=== PATIENT | female | born 1930 | race Caucasian/White ===

== ENCOUNTER 2017-10-18 21:30 | Inpatient (IN) ==
[2017-10-18] MEDS ORDERED: *HR* FentaNYL (PF) 100 MCG/2 ML VIAL IVP ONE (21:37)
[2017-10-18] MEDS ORDERED: 0.9 % Sodium Chloride 250 ML IVC ONE (21:37)
--- NOTE | 2017-10-18 21:41 | Emergency Department Note ---
Disposition Clinical Impression: Intertrochanteric fracture of right hip Qualifiers: Encounter type: initial encounter Fracture type: closed Fracture alignment: nondisplaced Qualified Code(s): S72.144A - Nondisplaced intertrochanteric fracture of right femur, initial encounter for closed fracture Disposition: Admitted As Inpatient Referrals: Gera Diamond MD [Primary Care Provider] - Time of Disposition: 23:10 General Adult HPI - General Stated complaint: fall Time Seen by Provider: 10/18/17 21:36 Source: patient, EMS Mode of arrival: EMS Limitations: other (Patient has some baseline dementia) Nursing Notes Reviewed: Yes Vital Signs Reviewed: Yes - History of Present Illness HPI Narrative: 87-year-old female brought in by EMS from local [facility] facility patient was using her walker she lost her balance and fell injuring her right hip leading to shortening and external rotation of the right lower extremity. Patient has extreme kyphosis of the back and neck. Other was no loss of consciousness the patient is not on blood thinners per EMS there is no head or neck pain. Patient denies shortness breath or chest pain weakness or numbness she has mild discomfort in her right hip. Patient brought in for further evaluation - Related Data Allergies Allergy/AdvReac Type Severity Reaction Status Date / Time Penicillins Allergy Anaphylaxis Verified 06/06/16 11:27 All systems ED: reviewed and negative except as stated. Musculoskeletal: Reports: arthralgia, myalgia Past Medical History - Past Medical History Attestation: Yes The following information was validated with the patient. Source: patient, old records reviewed, nursing notes reviewed Medical history: Reports: dementia, hypertension, peripheral artery disease Psychiatric history: Reports: anxiety, depression - Social History Smoking Status: Unknown if ever smoked Smokeless Tobacco Status: No Alcohol use: Reports: none Drug use: Reports: none Physical Exam - General Limitations: no limitations General appearance: alert, in no apparent distress - Head Head exam: atraumatic, normocephalic - Eye Eye exam: Present: normal appearance, PERRL, EOMI - ENT ENT exam: normal exam, mucous membranes dry - Neck Neck exam: Present: other (Severe cervical kyphosis) - Chest Chest inspection: Present: normal inspection, symmetric chest wall rise - Respiratory Respiratory exam: Present: normal lung sounds bilaterally - Cardiovascular Cardiovascular exam: Present: regular rate, normal rhythm - Abdominal Exam Abdominal exam: Present: soft, Non-Tender - Extremities Exam Extremities exam: Present: other (Right lower extremity external rotation and shortening. However is neurovascularly intact) - Expanded Lower Extremity Exam Hip/Pelvis exam: Present: normal inspection Knee exam: Present: normal inspection Gait: not tested/not observed - Back Exam Back exam: Present: other (Severe lordosis and kyphosis) - Neurological Exam Neurological exam: Present: alert, oriented X3 - Psychiatric Psychiatric exam: Present: normal affect - Skin Skin exam: Present: warm, dry, intact Course - Reevaluation(s) Reevaluation #1: Patient is awake and alert patient is getting 25 g of IV fentanyl little fluid bolus and she appears dehydrated screening labs and x-rays the pelvis and right hip. Clinical presumption at this point is intratrochanteric right hip fracture. Admission disposition anticipated, disposition pending. . Time: 21:42 Reevaluation #2: ED workup is complete. Troponin other chemistry values were within normal limits for baseline. Patient had a hip and pelvis x-ray reviewed by radiology as a right intertrochanteric hip fracture and an age-indeterminate right inferior and superior pubic rami fracture. I consulted the orthopedist parts professional Dr. Wilson who agreed to see the patient tomorrow and asked the patient be admitted by the hospitalist. Discussed the case with the hospitalist Dr. Hart, who accepted the patient for admission Time: 23:08 Vital Signs Temperature 98.3 F 10/18/17 21:38 Pulse Rate 74 10/18/17 21:38 Respiratory Rate 15 10/18/17 21:38 Blood Pressure 122/71 10/18/17 21:38 O2 Sat by Pulse Oximetry 96 10/18/17 21:38 Temperature 98.3 F 10/18/17 21:38 Pulse Rate 74 10/18/17 21:38 Respiratory Rate 15 10/18/17 21:38 Blood Pressure 122/71 10/18/17 21:38 O2 Sat by Pulse Oximetry 96 10/18/17 21:38 Oxygen Delivery Oxygen Delivery Room Air Medical Decision Making - Medical Records Medical records reviewed: Yes I reviewed the patient's medical records. - Lab Data Lab results reviewed: Yes I reviewed the patient's lab results. Result diagrams: 10/18/17 21:57 10/18/17 21:57 Lab Results 10/18/17 10/18/17 10/18/17 Range/Units 21:57 21:57 21:57 WBC 6.9 (4.3-11.1) K/mcL RBC 4.23 (3.82-4.97) M/mcL Hgb 14.0 (11.5-15.4) g/dL Hct 42.3 (35.3-44.9) % MCV 100.0 (83.0-100.0) fL MCH 33.1 (28.0-33.3) pg MCHC 33.1 (31.6-35.5) g/dL RDW 13.0 (11.5-14.5) % Plt Count 140 (140-400) K/mcL MPV 11.8 (9.4-12.4) fL Immature Gran % 0.4 (0-4) % Seg Neutrophils % 70.4 % Lymphocytes % 19.1 % Monocytes % 8.8 % Eosinophils % 0.9 % Basophils % 0.4 % Neutrophils # 4.9 (1.6-8.9) K/mcL Lymphocytes # 1.3 (0.6-4.6) K/mcL Monocytes # 0.6 (0.0-1.3) K/mcL Eosinophils # 0.1 (0.0-0.6) K/mcL Basophils # 0.0 (0.0-0.2) K/mcL PT 13.0 H (9.4-12.1) Seconds INR 1.2 Sodium 139 (136-145) mEq/L Potassium 4.7 (3.5-5.1) mEq/L Chloride 103 (98-107) mEq/L Carbon Dioxide 26 (23-29) mEq/L BUN 26 H (8-23) mg/dL Creatinine 0.92 (0.60-1.20) mg/dL Est GFR ( Amer) > 60 (> 60) Est GFR (Non-Af Amer) 57 L (> 60) BUN/Creatinine Ratio 28 H (6-26) Glucose 101 (70-105) mg/dL Calculated Osmolality 293 (280-300) Calcium 9.9 (8.6-10.3) mg/dL Troponin I < 0.03 (< 0.04) ng/mL - Radiology Data Radiology results reviewed: Yes I reviewed the patient's radiology results. - EKG Data EKG #1 EKG attestation: Yes I reviewed and interpreted this EKG. EKG results narrative: Twelve-lead EKG interpreted without neurologic assistance shows sinus rhythm at 83 bpm. Normal MO QRS and QT corrected. Possible right ventricular conduction delay nonspecific ST-T changes were noted changes when compared to prior EKG.
[2017-10-18 22:21] LABS: Basophils % 0.4 %; Eosinophils # 0.1 K/mcL (0.0-0.6); Eosinophils % 0.9 %; Hematocrit 42.3 % (35.3-44.9); Immature Granulocytes % 0.4 % (0-4); Lymphocytes # 1.3 K/mcL (0.6-4.6); Lymphocytes % 19.1 %; Mean Corpuscular HGB Conc 33.1 g/dL (31.6-35.5); Mean Corpuscular Hemoglobin 33.1 pg (28.0-33.3); Mean Platelet Volume 11.8 fL (9.4-12.4); Monocytes # 0.6 K/mcL (0.0-1.3); Monocytes % 8.8 %; Neutrophils # 4.9 K/mcL (1.6-8.9); Platelet Count 140 K/mcL (140-400); Red Blood Count 4.23 M/mcL (3.82-4.97); Segmented Neutrophils % 70.4 %
[2017-10-18 22:29] LABS: INR 1.2
[2017-10-18 22:34] LABS: BUN/Creatinine Ratio 28 (6-26); Blood Urea Nitrogen 26 mg/dL (8-23); Calcium 9.9 mg/dL (8.6-10.3); Carbon Dioxide 26 mEq/L (23-29); Chloride 103 mEq/L (98-107); Glucose 101 mg/dL (70-105); Osmolality,Calculated 293 (280-300); Potassium 4.7 mEq/L (3.5-5.1); Sodium 139 mEq/L (136-145); eGFR For African Americans > 60 (> 60); eGFR For Non-African Americans 57 (> 60)
[2017-10-18 22:35] LABS: Troponin I < 0.03 ng/mL (< 0.04)
[2017-10-19] MEDS ORDERED: Acetaminophen 325 MG TABLET PO PRN (04:44)
[2017-10-19] MEDS ORDERED: Naloxone 0.4 MG/ML INJ IVP PRN (04:44)
[2017-10-19] MEDS: 0.9 % Sodium Chloride 1,000 ML IVC SCH ×2 (05:26→15:10)
--- NOTE | 2017-10-19 06:05 | Internal Med History&Physical ---
Date of Encounter: 10/19/17 Time of Encounter: 04:25 Internal Medicine - H&P: HPI Chief complaint: hip fracture Admitted From: Emergency Dept Plans for Post Hospital Care: Home History of present illness: Ms. Castillo is a 87 year old female who presented to the ER tonight via EMS from her [facility]. She reportedly fell at her [facility]CF while using her walker and sustained a right lower leg injury/fracture. Imaging was performed in the ER which confirmed proximal right femoral intertrochanteric fracture as well as pubic ramus fracture. She was subsequently admitted to the hospitalist service with orthopedic consultation. Upon my assessment of the patient, patient is confused, disoriented, and is unable to provide any history whatsoever. I have very limited records available to me from [facility]. Her records confirm she has Alzheimer's dementia, hypertension, and peripheral artery disease. There are no other records available to review. I do find her CODE STATUS is DNR CC according to her [facility] records and state form. I reviewed her EKG and note that she has some high voltage and some lateral wall ST depression with T wave inversion concerning for some ischemia. She did have an initial troponin which is negative. I am unable to elicit if she has any chest pain or dyspnea at the present time. Past Med Surg Social Fam HX - Past Medical History Source: old records reviewed (very limited), other (phone conversation with ER staff) Medical history: dementia, hypertension, peripheral artery disease Psychiatric history: anxiety, depression - Past Surgical History Surgical History: other (unknown; unable to elicit) - Social History Smoking Status: Unknown if ever smoked Smokeless Tobacco Status: No Alcohol use: unknown Drug use: unknown Current living situation: [facility] Activity Level: Uses cane/walker - Family History Mother History Unknown: Yes Father History Unknown: Yes Internal Medicine - H&P: Meds Aspirin [Lo-Dose Aspirin EC] 81 mg PO 10/19/17 [History] Brimonidine Tartrate [Alphagan P] 5 ml OP 10/19/17 [History] Calcium Carbonate/Vitamin D3 [Oyster Shell Calcium-Vit D Tab] 1 each PO [History] Docusate Sodium [Stool Softener] 100 mg PO 10/19/17 [History] Donepezil HCl [Aricept] 10 mg PO 10/19/17 [History] Gabapentin [Neurontin] 100 mg PO 10/19/17 [History] Gluc Simpson Dipo Ch/Markus Simpson/C/Aleks [Glucosamine-Chondroitin Capsul] 1 each PO [History] Hydrocortisone Rectal CRM [Proctosol-HC] 28.35 gm RC 10/19/17 [History] Latanoprost [Xalatan] 2.5 ml OP 10/19/17 [History] Memantine HCl [Namenda Xr] 28 mg PO 10/19/17 [History] Menthol [Biofreeze] 118 ml TP 10/19/17 [History] OxyCODONE/APAP 5/325 [Percocet 5/325 MG] 1 each PO ONCE 10/19/17 [History] OxyCODONE/APAP 5/325 [Percocet 5/325 MG] 1 each PO Q6HR PRN 10/19/17 [History] Polyethylene Glycol 3350 [Purelax] 17 gm PO 10/19/17 [History] Polyvinyl Alcohol [Artificial Tears] 15 ml OP 10/19/17 [History] Primidone [Mysoline] 250 mg PO HS 10/19/17 [History] Sertraline [Zoloft] 25 mg PO DAILY 10/19/17 [History] Timolol Maleate 0.5% [Timolol Maleate 0.5%] 1 drop OP 10/19/17 [History] clonazePAM [Clonazepam] 0.5 mg PO 10/19/17 [History] 3 Allergy/AdvReac Type Severity Reaction Status Date / Time Penicillins Allergy Anaphylaxis Verified 06/06/16 11:27 ROS unobtainable: due to mental status - Constitutional Vitals: Temp Pulse Resp BP Pulse Ox 98.6 F 86 16 142/87 97 10/19/17 04:51 10/19/17 04:51 10/19/17 04:51 10/19/17 04:51 10/19/17 04:51 General appearance: Present: cachectic, A&O X 0, disheveled, no acute distress. Absent: answers questions appropriately Exam: looks dry - Head Head exam: Present: atraumatic, normal inspection - Eye Eye exam: Present: PERRL. Absent: scleral icterus - ENT ENT exam: Present: mucous membranes dry, normal exam - Neck Neck exam general surgery: Present: full ROM, supple. Absent: tenderness, nuchal rigidity, thyromegaly - Respiratory Respiratory exam: Present: CTAB. Absent: chest wall tenderness, rales, respiratory distress, rhonchi, wheezes - Cardiovascular Cardiovascular exam: Present: RRR, +S1, +S2, systolic murmur (grade 1-2). Absent: diastolic murmur - GI/Abdominal GI/Abdominal exam: Present: normal bowel sounds, soft. Absent: hepatomegaly, mass, splenomegaly, tenderness - Extremities Exam Extremities exam: Present: normal capillary refill, tenderness (right hip held in abduction), warm, radial pulses palpable and symmetrical. Absent: pedal edema - Neurological Exam Neurological exam: Present: alert, altered. Absent: oriented X3, facial droop Additional comments: confused and disoriented - Skin Skin exam: Present: dry, warm. Absent: rash Internal Med - H&P Results - Labs CBC & Chem 7: 10/18/17 21:57 10/18/17 21:57 - EKG Data -: EKG Interpreted by Myself - EKG Data Prior EKG available for review: no EKG comments: 10/19/17 06:19 NSR; high voltage; lateral wall ST-T inversion and subtle depression - Diagnostic Studies Other Images Status: image reviewed by me (Hip xray -- fracture noted) - Assessment and plan (1) Intertrochanteric fracture of right hip Current Visit: Yes Status: Acute Assessment and plan: 1. Will consult orthopedics. 2. I recommend delaying surgery until ECHO is done and troponins are trended. Her EKG is a little concerning for ischemia. 3. Amy-operative cardiac risk would be high at this time given the EKG finding. Unfortunately, I am unable to obtain any history from patient at this time. 4. CODE Status is DNR-CC. Qualifiers: Encounter type: initial encounter Fracture type: closed Fracture alignment: nondisplaced Qualified Code(s): S72.144A - Nondisplaced intertrochanteric fracture of right femur, initial encounter for closed fracture (2) Abnormal EKG Current Visit: Yes Status: Acute Assessment and plan: 1. Will trend EKG and troponins. 2. Will order ECHO to assess LV function and for any wall motion abnormality. 3. Recommend postponing surgery at least until above assessments completed. (3) Dementia Current Visit: Yes Status: Chronic Assessment and plan: 1. I am unsure of her baseline state. 2. Recommend contacting family if available to come to hospital to help assess baseline mental state. 3. Continue home meds as appropriate. Qualifiers: Dementia type: Alzheimer's disease Alzheimer's disease onset: unspecified onset Dementia behavioral disturbance: without behavioral disturbance Qualified Code(s): G30.9 - Alzheimer's disease, unspecified; F02.80 - Dementia in other diseases classified elsewhere without behavioral disturbance (4) DVT prophylaxis Current Visit: Yes Status: Acute Assessment and plan: 1. Heparin SQ.
[2017-10-19] MEDS: *HR* Heparin 5,000 UNIT/ML VIAL SQ SCH ×2 (06:12→16:48)
[2017-10-19 06:25] LABS: Basophils % 0.5 %; Eosinophils % 0.2 %; Hematocrit 37.4 % (35.3-44.9); Immature Granulocytes % 0.3 % (0-4); Lymphocytes % 16.1 %; Mean Corpuscular HGB Conc 32.4 g/dL (31.6-35.5); Mean Corpuscular Hemoglobin 32.1 pg (28.0-33.3); Mean Corpuscular Volume 99.2 fL (83.0-100.0); Mean Platelet Volume 11.6 fL (9.4-12.4); Monocytes # 0.6 K/mcL (0.0-1.3); Monocytes % 10.1 %; Neutrophils # 4.6 K/mcL (1.6-8.9); Platelet Count 125 K/mcL (140-400); Red Blood Count 3.77 M/mcL (3.82-4.97); Red Cell Distribution Width 13.1 % (11.5-14.5); Segmented Neutrophils % 72.8 %
[2017-10-19 06:27] LABS: Hemoglobin 12.1 g/dL (11.5-15.4)
[2017-10-19 06:36] LABS: INR 1.2; Prothrombin Time 12.6 Seconds (9.4-12.1)
[2017-10-19 06:39] LABS: Activated Partial Thrombo Time 34.6 Seconds (26.0-36.0)
[2017-10-19 06:46] LABS: Alanine Aminotransferase 19 Units/L (7-52); Albumin/Globulin Ratio 1.7 (1.1-2.2); Alkaline Phosphatase 71 Units/L (34-104); Aspartate Amino Transferase 28 Units/L (13-39); BUN/Creatinine Ratio 35 (6-26); Bilirubin,Total 0.6 mg/dL (0.3-1.0); Blood Urea Nitrogen 24 mg/dL (8-23); Calcium 9.5 mg/dL (8.6-10.3); Carbon Dioxide 25 mEq/L (23-29); Chloride 106 mEq/L (98-107); Globulin 2.3 g/dL (2.4-3.5); Glucose 108 mg/dL (70-105); Magnesium 1.9 mg/dL (1.6-2.6); Osmolality,Calculated 299 (280-300); Potassium 4.3 mEq/L (3.5-5.1); Sodium 142 mEq/L (136-145); Total Protein 6.3 g/dL (6.4-8.9); eGFR For African Americans > 60 (> 60); eGFR For Non-African Americans > 60 (> 60)
--- NOTE | 2017-10-19 06:47 | Orthopedic Consult Note ---
Date of Encounter: 10/19/17 Time of Encounter: 06:46 History of Present Illness HPI: Ms. 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 Patient admitted for treatment. Patient alert and oriented Right lower extremity Decreased range of motion secondary to pain Neurovascular intact X-rays reviewed right hip intratrochanteric fracture with hardware distal. Recommendation right hip open reduction intramedullary nail fixation. Past Med Surg Social Fam HX - Past Medical History Medical history: dementia, hypertension, peripheral artery disease Psychiatric history: anxiety, depression - Past Surgical History Surgical History: other (unknown; unable to elicit) - Social History Smoking Status: Unknown if ever smoked Smokeless Tobacco Status: No Alcohol use: unknown Drug use: unknown - Family History Mother History Unknown: Yes Father History Unknown: Yes Medications and Allergies Aspirin [Lo-Dose Aspirin EC] 81 mg PO 10/19/17 [History] Brimonidine Tartrate [Alphagan P] 5 ml OP 10/19/17 [History] Calcium Carbonate/Vitamin D3 [Oyster Shell Calcium-Vit D Tab] 1 each PO [History] Docusate Sodium [Stool Softener] 100 mg PO 10/19/17 [History] Donepezil HCl [Aricept] 10 mg PO 10/19/17 [History] Gabapentin [Neurontin] 100 mg PO 10/19/17 [History] Gluc Simpson Dipo Ch/Markus Simpson/C/Aleks [Glucosamine-Chondroitin Capsul] 1 each PO [History] Hydrocortisone Rectal CRM [Proctosol-HC] 28.35 gm RC 10/19/17 [History] Latanoprost [Xalatan] 2.5 ml OP 10/19/17 [History] Memantine HCl [Namenda Xr] 28 mg PO 10/19/17 [History] Menthol [Biofreeze] 118 ml TP 10/19/17 [History] OxyCODONE/APAP 5/325 [Percocet 5/325 MG] 1 each PO ONCE 10/19/17 [History] OxyCODONE/APAP 5/325 [Percocet 5/325 MG] 1 each PO Q6HR PRN 10/19/17 [History] Polyethylene Glycol 3350 [Purelax] 17 gm PO 10/19/17 [History] Polyvinyl Alcohol [Artificial Tears] 15 ml OP 10/19/17 [History] Primidone [Mysoline] 250 mg PO HS 10/19/17 [History] Sertraline [Zoloft] 25 mg PO DAILY 10/19/17 [History] Timolol Maleate 0.5% [Timolol Maleate 0.5%] 1 drop OP 10/19/17 [History] clonazePAM [Clonazepam] 0.5 mg PO 10/19/17 [History] 3 Allergy/AdvReac Type Severity Reaction Status Date / Time Penicillins Allergy Anaphylaxis Verified 06/06/16 11:27 All Systems Reviewed: The remainder of the systems were reviewed and are negative Physical Exam - Constitutional Vitals: Temp Pulse Resp BP Pulse Ox 98.6 F 86 16 142/87 97 10/19/17 04:51 10/19/17 04:51 10/19/17 04:51 10/19/17 04:51 10/19/17 04:51 Results - Labs Result Diagrams: 10/19/17 05:55 10/19/17 05:55 Labs: Abnormal lab results RBC 3.77 M/mcL (3.82-4.97) L 10/19/17 05:55 Plt Count 125 K/mcL (140-400) L 10/19/17 05:55 PT 12.6 Seconds (9.4-12.1) H 10/19/17 05:55 BUN 24 mg/dL (8-23) H 10/19/17 05:55 BUN/Creatinine Ratio 35 (6-26) H 10/19/17 05:55 Glucose 108 mg/dL (70-105) H 10/19/17 05:55 Serum Total Protein 6.3 g/dL (6.4-8.9) L 10/19/17 05:55 Globulin 2.3 g/dL (2.4-3.5) L 10/19/17 05:55 H & H 10/19/17 Range/Units 05:55 Hgb 12.1 D (11.5-15.4) g/dL Hct 37.4 (35.3-44.9) % All other labs normal. Consult Discharge Plan - Plan Referrals: Gera Diamond MD [Primary Care Provider] -
[2017-10-19 07:23] LABS: Troponin I 0.05 ng/mL (< 0.04)
[2017-10-19] MEDS: traMADol 50 MG TABLET PO PRN ×2 (09:41→16:48)
--- NOTE | 2017-10-19 09:52 | Anesthesia Evaluation PreOp ---
Date of Encounter: 10/19/17 Time of Encounter: 09:50 - Past History Planned Operation: RIGHT HIP PINNING Cardiac History: HTN, Other (Troponin 0.03 to 0.05) Pulmonary History: Denies Any Significant HX EXTRACTIONS TECHNOLOGIST History: Other (Dementia, tremors) Other Medical History: GERD (Occasional), Other ([facility]F resident) Anesthesia History: No Prior Anesthetic Complications, Past Anesthesia Alcohol Use: unknown Drug use: unknown Medications and Allergies Aspirin [Lo-Dose Aspirin EC] 81 mg PO 10/19/17 [History] Brimonidine Tartrate [Alphagan P] 5 ml OP 10/19/17 [History] Calcium Carbonate/Vitamin D3 [Oyster Shell Calcium-Vit D Tab] 1 each PO [History] Docusate Sodium [Stool Softener] 100 mg PO 10/19/17 [History] Donepezil HCl [Aricept] 10 mg PO 10/19/17 [History] Gabapentin [Neurontin] 100 mg PO 10/19/17 [History] Gluc Simpson Dipo Ch/Markus Simpson/C/Aleks [Glucosamine-Chondroitin Capsul] 1 each PO [History] Hydrocortisone Rectal CRM [Proctosol-HC] 28.35 gm RC 10/19/17 [History] Latanoprost [Xalatan] 2.5 ml OP 10/19/17 [History] Memantine HCl [Namenda Xr] 28 mg PO 10/19/17 [History] Menthol [Biofreeze] 118 ml TP 10/19/17 [History] OxyCODONE/APAP 5/325 [Percocet 5/325 MG] 1 each PO ONCE 10/19/17 [History] OxyCODONE/APAP 5/325 [Percocet 5/325 MG] 1 each PO Q6HR PRN 10/19/17 [History] Polyethylene Glycol 3350 [Purelax] 17 gm PO 10/19/17 [History] Polyvinyl Alcohol [Artificial Tears] 15 ml OP 10/19/17 [History] Primidone [Mysoline] 250 mg PO HS 10/19/17 [History] Sertraline [Zoloft] 25 mg PO DAILY 10/19/17 [History] Timolol Maleate 0.5% [Timolol Maleate 0.5%] 1 drop OP 10/19/17 [History] clonazePAM [Clonazepam] 0.5 mg PO 10/19/17 [History] 3 Allergy/AdvReac Type Severity Reaction Status Date / Time Penicillins Allergy Anaphylaxis Verified 06/06/16 11:27 - Meds/Allergy Pre-op Review Medications Reviewed: Yes Allergies Reviewed: Yes Beta Blockers on Current Med List: No Anesthesia Results - Labs 10/19/17 05:55 10/19/17 05:55 Laboratory Tests 10/19/17 05:55 Calcium 9.5 Magnesium 1.9 Serum Total Protein 6.3 L Albumin 4.0 - Imaging EKG: report reviewed Anesthesia Exam O2 Sat Height 1.52 m Weight 49.2 kg Weight 45.359 kg O2 Sat by Pulse Oximetry 96 O2 Sat by Pulse Oximetry 97 O2 Sat by Pulse Oximetry 98 O2 Sat by Pulse Oximetry 98 O2 Sat by Pulse Oximetry 96 Vital Signs/O2 Sat, Most Current Temp Pulse Resp BP Pulse Ox 98.1 F 92 20 135/73 96 10/19/17 07:29 10/19/17 07:29 10/19/17 07:29 10/19/17 07:29 10/19/17 07:29 - HEENT Mallampati: II Teeth: Normal, Missing Oral Opening: Greater than 3 - EXTRACTIONS TECHNOLOGIST LOC: Confused - Cardiac Rhythm: Regular - Pulmonary Breath Sounds: bilateral Clear Anesthesia Assess/Plan ASA Score: 3 Anesthetic Plan: Regional (SAB with sedation) Monitoring Plan: Standard Monitors Recovery Plan: PACU Anes Supervising Prov Stmt: Chart reviewed, and patient examined. Patient's history, risks, benefits, and alternatives discussed with the patient's son, who is also POA, and his . They wish to proceed. DNR status during surgery discussed.
[2017-10-19] MEDS: *HR* OxyCODONE Immed Rel 5 MG TABLET PO PRN ×2 (11:10→19:34)
--- NOTE | 2017-10-19 14:30 | Event Note ---
Date of Encounter: 10/19/17 Time of Encounter: 11:40 Patient complaining of right hip pain. Denies any shortness of breath or chest pain at this time. Orthopedics has evaluated patient. Plan for surgery tomorrow. Will get 2-D echocardiogram in the meantime. At patient's age, she is at moderate to high risk for cardiac complications from surgery and anesthesia.
[2017-10-19] MEDS ORDERED: 0.9 % Sodium Chloride 1,000 ML IVC SCH (15:30)
[2017-10-20] MEDS: *HR* OxyCODONE Immed Rel 5 MG TABLET PO PRN ×3 (05:36→21:45)
[2017-10-20] MEDS: *HR* Heparin 5,000 UNIT/ML VIAL SQ SCH ×2 (06:33→16:51)
[2017-10-20] MEDS ORDERED: *HR* FentaNYL (PF) 100 MCG/2 ML VIAL ONE (07:14)
[2017-10-20] MEDS ORDERED: *HR* Etomidate 40 MG/20 ML VIAL IVP ONE (07:14)
[2017-10-20] MEDS ORDERED: Lidocaine -MPF 2% 2 ML VIAL ONE (07:15)
[2017-10-20] MEDS ORDERED: Ondansetron 4 MG/2 ML VIAL ONE (07:15)
[2017-10-20] MEDS ORDERED: Dexamethasone 4 MG/ML VIAL ONE (07:15)
[2017-10-20] MEDS ORDERED: Acetaminophen IV 1,000 MG/100 ML INFUS..BTL ONE (07:26)
[2017-10-20] MEDS ORDERED: *HR* Propofol 200 MG/20 ML VIAL IVP ONE (07:44)
[2017-10-20] MEDS ORDERED: Clindamycin 900 MG/50 ML 900 MG/50 ML IV.SOLN IVPB ONE ×2 (07:45→08:21)
--- NOTE | 2017-10-20 08:25 | Anesthesia Procedures ---
Date of Encounter: 10/20/17 Time of Encounter: 07:55 Procedures: Anesthesia - Epidural/Spinal Patient ID/Chart reviewed: Yes Patient examined: Yes Supplemental Oxygen Rate (L/min): 3 Site Prep: Aseptic Technique, Sterile prep and drape, Povidone-Iodine 1% Patient position: left lateral decubitus Local Anesthetic: Lidocaine 1% Amount of Local Anesthetic used: 3 Interspace Used: L2-L3 Blood: No CSF: Yes Paresthesia: No Spinal Needle Gauge: 22 Spinal Dose: bupivicaine 0.5% 2 ml used Procedure: 0755 patient placed side lying, monitors on iv sedation 15 mg etomidate given in incremental doses, patient prepped with betadine and a sterile drape applied , 1% lidocaine used at skin, attempt x2 l2/l3 interspace used. 22 g spinal needle advanced, csf encountered, clear, no blood, no paraesthesia, 2 ml bupivicaine 0.5% preservative free used, injected at 0815. patient tolerated procedure well. Vitals + FHT's: see anesthesia record for vitals
[2017-10-20] MEDS ORDERED: *HR* PHENYLEPHRINE 1,000 MCG/10 ML SYRINGE IVP ONE (08:34)
--- NOTE | 2017-10-20 09:00 | Orthopedic Operative Note ---
Date of procedure: 10/20/17 Pre-op diagnosis: Right intertrochanteric hip fracture Post-op diagnosis: same Procedure: Procedure: Right hip open reduction intramedullary nail fixation Estimated blood loss: 50 cc Hardware: Metal: 10 x 130 Synthes TFN, 90 mm helical blade, 36 mm distal locking bolt \ Operative procedure: The patient was brought to the operating room and placed on the operating room table. After general anesthesia was administered the well leg was place in the well leg johnson and the operative leg was placed in the fracture leg johnson. All pressure points were padded appropriately. The operative extremity was prepped and draped in the sterile surgical fashion patient received IV antibiotic prior to skin incision. A standard direct lateral approach was made over the entry point of the greater trochanter, the incision was made through the skin and subcutaneous tissue hemostasis was obtained with Bovie cautery. Using careful sharp dissection the fascia was identified and incised, flouroscopic assistance was used to identify the entry point. The guidepin was placed at the entry point using fluroscopic assistance, it was over reamed with the proximal reamer. The 10 x 130 nail was placed through the entry hole, across the fracture site into the distal fragment the position was confirmed with fluroscopy. A guide pin was placed through the proximal locking guide from the lateral femur through the nail across the fracture site into the femoral head, it was over reamed with the reamer. The 90 mm helical blade was placed over the guide pin through the nail into the femoral head, locked in place with the proximal locking bolt. Distal locking bolt was placed through the distal locking guide position of hardware and fracture reduction found to be acceptable with fluroscopic assistance. The wound was irrigated. Fascia was closed with a running #2 PDS suture. The deep tissue was irrigated and closed deep with #1 PDS suture superficially with 0 PDS suture and skin was closed with skin cordelia. The patient was placed in a sterile dressing The patient was extubated and transferred to the recovery room in stable condition. Anesthesia: spinal Surgeon: Joshua Wilson Was there an psychiatric assistant present: No Estimated blood loss (cc): 50 Condition: stable Disposition: PACU
[2017-10-20 09:33] LABS: Hematocrit 34.9 % (35.3-44.9); Hemoglobin 11.3 g/dL (11.5-15.4)
--- NOTE | 2017-10-20 09:46 | Anesthesia Evaluation Post Op ---
Date of Encounter: 10/20/17 Time of Encounter: 09:45 Notes: Patient's vital signs have been reviewed. Patient is stable postoperatively and has adequately recovered from anesthesia. Patient is determined to have stable airway patency and respiratory function including respiratory rate and oxygen saturation. Patient has a stable heart rate, blood pressure and adequate hydration. Patients mental status is acceptable. Patients temperature is appropriate. Pain and nausea are adequately controlled. - Discharge PostOp Status: Transfer Patient to floor
[2017-10-20] MEDS: Ringers Solution, Lactated 1,000 ML ONE (10:00)
[2017-10-20] MEDS ORDERED: clonazePAM 0.5 MG TABLET PO PRN ×2 (14:42→15:13)
[2017-10-20] MEDS ORDERED: Hydrocortisone Rectal 2.5% CRM 28 GM TUBE RC PRN ×2 (14:42→15:13)
--- NOTE | 2017-10-20 14:49 | Internal Med Progress Note ---
Date of Encounter: 10/20/17 Time of Encounter: 14:45 - Assessment and plan (1) Intertrochanteric fracture of right hip Current Visit: Yes Status: Acute Assessment and plan: Status post open reduction and internal fixation with intramedullary nail. Postop day 0. Continue supportive care. Pain control. Plan for PT/OT. Qualifiers: Encounter type: initial encounter Fracture type: closed Fracture alignment: nondisplaced Qualified Code(s): S72.144A - Nondisplaced intertrochanteric fracture of right femur, initial encounter for closed fracture (2) Abnormal EKG Current Visit: Yes Status: Acute Assessment and plan: Echocardiogram done shows EF of 65% with indeterminate diastolic function and moderate pulmonary hypertension. No further workup needed at this time (3) Dementia Current Visit: Yes Status: Chronic Assessment and plan: Continue Aricept. High risk for delirium. Qualifiers: Dementia type: Alzheimer's disease Alzheimer's disease onset: unspecified onset Dementia behavioral disturbance: without behavioral disturbance Qualified Code(s): G30.9 - Alzheimer's disease, unspecified; F02.80 - Dementia in other diseases classified elsewhere without behavioral disturbance (4) DVT prophylaxis Current Visit: Yes Status: Acute Assessment and plan: Continue subcutaneous heparin - Time Spent With Patient Total time spent is greater than 50% in coordination of care (as documented) at patient's floor/unit and/or counseling patient: - Subjective Interval history: Patient underwent surgery this morning. Is recovering in her bed. She is somnolent but easily awakes. - Constitutional Vitals: Temp Pulse Resp BP Pulse Ox 98.9 F 88 16 120/71 97 10/20/17 11:53 10/20/17 11:53 10/20/17 11:53 10/20/17 11:53 10/20/17 11:53 General appearance: Present: cachectic, A&O X 0, disheveled, no acute distress. Absent: answers questions appropriately Exam: Denies any pain at this time - Respiratory Respiratory exam: Present: CTAB. Absent: accessory muscle use, rales, rhonchi, wheezes - Cardiovascular Cardiovascular exam: Present: RRR, +S1, +S2, systolic murmur. Absent: diastolic murmur, gallop, rubs - GI/Abdominal GI/Abdominal exam: Present: normal bowel sounds, soft, no peritoneal signs. Absent: distended, tenderness - Extremities Exam Extremities exam: Present: warm, radial pulses palpable and symmetrical. Absent : calf tenderness, cyanotic, pedal edema - Neurological Exam Neurological exam: Present: alert, oriented X3, no focal deficits. Absent: facial droop, speech deficit Internal Medicine: Result - Labs CBC & Chem 7: 10/20/17 09:25 10/19/17 05:55 Labs: Short CBC 10/20/17 Range/Units 09:25 Hgb 11.3 L (11.5-15.4) g/dL Hct 34.9 L (35.3-44.9) % Cardiac Enzymes 10/19/17 Range/Units 18:25 Troponin I < 0.03 (< 0.04) ng/mL - ABG Interpretation ABG results: PT/INR, D-dimer PT 12.6 Seconds (9.4-12.1) H 10/19/17 05:55 - Impressions Impressions Fluoroscopy 10/20/17 00:00 IMPRESSION: Intraprocedural fluoroscopic spot images as above. See separate procedure report for more information. D/ / Paco Montalvo MD / Paco Montalvo MD Interpreting Provider: Paco Montalvo MD Hip X-Ray 10/20/17 00:00 IMPRESSION: Intraprocedural fluoroscopic spot images as above. See separate procedure report for more information. D/ / Paco Montalvo MD / Paco Montalvo MD Interpreting Provider: Paco Montalvo MD Hip X-Ray 10/20/17 07:43 IMPRESSION: 1. Status post uncomplicated open reduction internal fixation. D/ / Mickey Shannon MD / Mickey Shannon MD Interpreting Provider: Mickey Shannon MD - VTE Documentation of Mechanical Device: Venous foot pump, device Consult Discharge Plan - Plan Referrals: Gera Diamnod MD [Primary Care Provider] -
[2017-10-20] MEDS ORDERED: Artificial Tears SOLN 15 ML BOTTLE OP SCH (15:00)
[2017-10-20] MEDS ORDERED: Clindamycin 900 MG/50 ML 900 MG/50 ML IV.SOLN IVPB SCH (15:13)
[2017-10-20] MEDS ORDERED: Naloxone 0.4 MG/ML INJ IVP PRN (15:13)
[2017-10-20] MEDS ORDERED: 0.9 % Sodium Chloride 1,000 ML IVC SCH (15:13)
[2017-10-20] MEDS ORDERED: Acetaminophen 325 MG TABLET PO PRN (15:13)
[2017-10-20] MEDS ORDERED: traMADol 50 MG TABLET PO PRN (15:13)
[2017-10-20] MEDS: Clindamycin 900 MG/50 ML 900 MG/50 ML IV.SOLN IVPB SCH (16:49)
[2017-10-20] MEDS ORDERED: Gabapentin 100 MG CAPSULE PO SCH ×2 (18:00)
[2017-10-20] MEDS: Artificial Tears SOLN 15 ML BOTTLE OP SCH ×2 (21:46→21:54)
[2017-10-21] MEDS: Clindamycin 900 MG/50 ML 900 MG/50 ML IV.SOLN IVPB SCH (00:09)
[2017-10-21] MEDS ORDERED: *HR* LORazepam 2 MG/ML VIAL IVP ONE (00:14)
[2017-10-21 04:36] LABS: Hematocrit 32.5 % (35.3-44.9); Hemoglobin 10.5 g/dL (11.5-15.4)
[2017-10-21] MEDS: *HR* Heparin 5,000 UNIT/ML VIAL SQ SCH (05:13)
[2017-10-21] MEDS: *HR* OxyCODONE Immed Rel 5 MG TABLET PO PRN ×3 (05:20→12:11)
--- NOTE | 2017-10-21 06:23 | Orthopedics Progress Note ---
Date of Encounter: 10/21/17 Time of Encounter: 06:22 Subjective Interval history: Patient was seen this morning sleeping Afebrile vital signs stable. Operative extremity: Dressing clean dry and intact Calves nontender Assessment and plan: Continue with postoperative care Hematocrit 32 stable for discharge Objective Vital signs: Vital Signs Temp Pulse Resp BP Pulse Ox 10/21/17 03:39 97.8 F 99 14 122/70 96 10/20/17 23:45 98.6 F 103 14 119/68 98 10/20/17 19:07 100.1 F H 106 18 132/62 97 10/20/17 16:45 95 154/78 10/20/17 14:00 99.4 F 87 16 121/76 99 10/20/17 11:53 98.9 F 88 16 120/71 97 10/20/17 10:48 99.3 F 80 14 104/65 99 10/20/17 09:59 98.6 F 80 16 111/58 100 10/20/17 09:48 97.6 F 84 16 109/59 100 10/20/17 09:38 98.7 F 86 14 107/52 99 10/20/17 09:28 99.0 F 89 18 105/53 94 10/20/17 09:18 97.4 F L 93 14 99/71 96 10/20/17 09:08 101.5 F H 96 18 104/60 99 10/20/17 06:38 98.3 F 91 16 148/93 99 Intake and Output 10/20/17 10/20/17 10/21/17 15:59 23:59 07:59 Intake Total 50 / 50 100 / 100 Output Total 50 / 50 300 / 300 350 / 350 Balance 0 / 0 -200 / -200 -350 / -350 Intake: IV Fluids 50 / 50 50 / 50 Cleocin Premix 900 MG/50 ML 900 50 / 50 50 / 50 mg In 50 ml @ 50 mls/hr IVPB Q8HR REPLACED BY [facility] Rx#:[id number] Oral 50 / 50 Output: Estimated Blood Loss 50 / 50 Catheter 300 / 300 350 / 350 Other: Meal Dinner Percent of Meal Consumed 5% - Labs CBC & BMP: 10/21/17 03:17 10/19/17 05:55 Labs: Abnormal lab results RBC 3.77 M/mcL (3.82-4.97) L 10/19/17 05:55 Hgb 10.5 g/dL (11.5-15.4) L 10/21/17 03:17 Hct 32.5 % (35.3-44.9) L 10/21/17 03:17 Plt Count 125 K/mcL (140-400) L 10/19/17 05:55 PT 12.6 Seconds (9.4-12.1) H 10/19/17 05:55 BUN 24 mg/dL (8-23) H 10/19/17 05:55 BUN/Creatinine Ratio 35 (6-26) H 10/19/17 05:55 Glucose 108 mg/dL (70-105) H 10/19/17 05:55 Serum Total Protein 6.3 g/dL (6.4-8.9) L 10/19/17 05:55 Globulin 2.3 g/dL (2.4-3.5) L 10/19/17 05:55 - VTE Documentation of Mechanical Device: Venous foot pump, device Consult Discharge Plan - Plan Referrals: Gera Diamond MD [Primary Care Provider] -
[2017-10-21] MEDS: Ringers Solution, Lactated 1,000 ML ONE (07:56)
[2017-10-21] MEDS: Artificial Tears SOLN 15 ML BOTTLE OP SCH ×2 (08:01→14:39)
--- NOTE | 2017-10-21 08:54 | Event Note ---
Date of Encounter: 10/21/17 Time of Encounter: 08:53 Follow up appointment made: Stephanie Phillips 10/31/17 - POD#12- Right hip open reduction intramedullary nail fixation - xrays Faxed appt to [facility], confirmed appt card.
[2017-10-21] MEDS ORDERED: Aspirin Enteric Coated 81 MG Tablet PO SCH ×2 (09:00)
--- NOTE | 2017-10-21 09:34 | Electrocardiograph Report ---
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
--- NOTE | 2017-10-21 09:39 | Electrocardiograph Report ---
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
--- NOTE | 2017-10-21 14:46 | Discharge Summary ---
- NOTES TO OUTPATIENT PROVIDER Notes to Outpatient Provider: Patient hospitalized here with right hip intertrochanteric fracture. Underwent open reduction and internal fixation with intramedullary nail fixation yesterday. Doing well. Has been cleared from orthopedic standpoint for discharge. Patient will be discharged to skilled rehabilitation today. Date of Encounter: 10/21/17 Time of Encounter: 08:20 - Discharge Diagnosis (1) Intertrochanteric fracture of right hip Priority: Primary Status: Acute Qualifiers: Encounter type: initial encounter Fracture type: closed Fracture alignment: nondisplaced Qualified Code(s): S72.144A - Nondisplaced intertrochanteric fracture of right femur, initial encounter for closed fracture (2) Abnormal EKG Priority: Secondary Status: Acute (3) Dementia Priority: Secondary Status: Chronic Qualifiers: Dementia type: Alzheimer's disease Alzheimer's disease onset: unspecified onset Dementia behavioral disturbance: without behavioral disturbance Qualified Code(s): G30.9 - Alzheimer's disease, unspecified; F02.80 - Dementia in other diseases classified elsewhere without behavioral disturbance (4) DVT prophylaxis Priority: Secondary Status: Acute Hospital course: Ms. Castillo is a 87 year old female Patient with history of dementia who was hospitalized here with right hip intertrochanteric fracture. She had an abnormal EKG in the ER and underwent 2-D echocardiogram which showed normal ejection fraction and diastolic dysfunction. She was cleared for surgery and then underwent open reduction and internal fixation with intramedullary nail fixation yesterday. She has been doing well since then. Pain is controlled with her current oral pain medication regimen. She has been cleared from orthopedic standpoint for discharge. Patient will be discharged to skilled rehabilitation today. Her CODE STATUS is DNR comfort care. She will be on Lovenox for DVT prophylaxis for 7 days. Discharge discussed with: patient, nurse - Time Spent with Patient Total time spent providing and/or coordinating discharge services: Greater than 30 minutes (35 min) - Discharge Medications Prescriptions: OxyCODONE Immed Rel [Roxicodone 5 MG] 5 mg PO Q6HR PRN 5 Days #14 tablet PRN Reason: Severe Pain clonazePAM [Clonazepam] 0.5 mg PO BID 5 Days #10 tab.rapdis Enoxaparin [Lovenox] 30 mg SQ DAILY #7 syr Gabapentin [Neurontin] 200 mg PO QPM #20 capsule Tramadol HCl [Ultram] 50 mg PO QID PRN 5 Days #14 tab PRN Reason: Moderate Pain Home Medications: Aspirin [Lo-Dose Aspirin EC] 81 mg PO DAILY 10/19/17 [History] Brimonidine Tartrate [Alphagan P] 1 drop LEFT EYE BID 10/19/17 [History] Docusate Sodium [Stool Softener] 200 mg PO HS 10/19/17 [History] Donepezil HCl [Aricept] 10 mg PO HS 10/19/17 [History] Gluc Simpson Dipo Ch/Markus Simpson/C/Aleks [Glucosamine-Chondroitin Capsul] 1 cap PO BID [History] Hydrocortisone Rectal CRM [Proctosol-Hc] 1 appl RC DAILY PRN 10/19/17 [History] Menthol [Biofreeze] 1 appl TP Q8H PRN 10/19/17 [History] Polyvinyl Alcohol [Artificial Tears] 1 drop OP TID 10/19/17 [History] Enoxaparin [Lovenox] 30 mg SQ DAILY #7 syr 10/21/17 [Rx] Gabapentin [Neurontin] 200 mg PO QPM #20 capsule 10/21/17 [Rx] OxyCODONE Immed Rel [Roxicodone 5 MG] 5 mg PO Q6HR PRN 5 Days #14 tablet [Rx] Tramadol HCl [Ultram] 50 mg PO QID PRN 5 Days #14 tab 10/21/17 [Rx] clonazePAM [Clonazepam] 0.5 mg PO BID 5 Days #10 tab.rapdis 10/21/17 [Rx] Allergies/Adverse Reactions: 3 Allergy/AdvReac Type Severity Reaction Status Date / Time Penicillins Allergy Anaphylaxis Verified 06/06/16 11:27 Date of admission: 10/19/17 16:32 Primary care physician: Gera Diamond MD Consults: 10/20/17 15:13 Consult to Occupational Therapy [CONS] Routine Comment: Evaluate, develop and implement POC Reason for Consult: post hip surgery Does patient have active BEDREST order?: No Is patient medically & hemodynamically stable?: Yes Patient assessed for mobility or mobilized this visit?: Yes Consult to Orthopedic Navigator [CONS] [CONS] Routine Consult to Physical Therapy [CONS] Routine Comment: Evaluate, develop and implement POC Reason for Consult: post hip surgery Does patient have active BEDREST order?: No Is patient medically & hemodynamically stable?: Yes Patient assessed for mobility or mobilized this visit?: Yes Consult to Fast Food Fry Cook [CONS] Routine Reason for SW Consult: post -op hip fracture RT Post Op Consult [CONS] Routine Discharging clinician: Dane Mcgrath Anticipated date of discharge: 10/21/17 - Constitutional Vitals: Temp Pulse Resp BP Pulse Ox 98.5 F 109 16 127/75 94 10/21/17 10:40 10/21/17 10:40 10/21/17 10:40 10/21/17 10:40 10/21/17 10:40 General appearance: Present: cachectic, A&O X 0, disheveled, no acute distress. Absent: answers questions appropriately - Respiratory Respiratory exam: Present: CTAB. Absent: accessory muscle use, rales, rhonchi, wheezes - Cardiovascular Cardiovascular exam: Present: RRR, +S1, +S2. Absent: diastolic murmur, gallop, rubs, systolic murmur - Extremities Exam Extremities exam: Present: tenderness (right hip), warm, radial pulses palpable and symmetrical. Absent: calf tenderness, cyanotic, pedal edema - Neurological Exam Neurological exam: Present: alert, no focal deficits. Absent: facial droop, speech deficit - Patient Status Disposition: Transfer SNF Condition: Fair Functional capacity at discharge: wheelchair bound Overall status at discharge: patient is progressing back to baseline - Discharge Instructions Follow Up With: Stephanie Pollard PAC [Physician Dietetic Aide] - 10/31/17 9:15 am Gera Diamond MD [Primary Care Provider] - (in 1-2 weeks) Joshua Wilson MD [Partnered Physician] - (in 1-2 weeks) Forms: ED Satisfaction Letter - Diet and Activity Activity: as per physical therapy, increase activity as tolerated Diet: low fat, low cholesterol, low salt diet - VTE Documentation of Mechanical Device: Venous foot pump, device
--- NOTE | 2017-10-21 15:02 | Physician Discharge Referral ---
ExtendedCare Referral Info Provider in Charge after Transfer: PCP Institutional Level of Care: Skilled - Diagnosis (1) Intertrochanteric fracture of right hip Priority: Primary Status: Acute (2) Abnormal EKG Priority: Secondary Status: Acute (3) Dementia Priority: Secondary Status: Chronic (4) DVT prophylaxis Priority: Secondary Status: Acute Prognosis: Fair - Transfer Medications Prescriptions: OxyCODONE Immed Rel [Roxicodone 5 MG] 5 mg PO Q6HR PRN 5 Days #14 tablet PRN Reason: Severe Pain clonazePAM [Clonazepam] 0.5 mg PO BID 5 Days #10 tab.rapdis Enoxaparin [Lovenox] 30 mg SQ DAILY #7 syr Gabapentin [Neurontin] 200 mg PO QPM #20 capsule Tramadol HCl [Ultram] 50 mg PO QID PRN 5 Days #14 tab PRN Reason: Moderate Pain Home Medications: Aspirin [Lo-Dose Aspirin EC] 81 mg PO DAILY 10/19/17 [History] Brimonidine Tartrate [Alphagan P] 1 drop LEFT EYE BID 10/19/17 [History] Docusate Sodium [Stool Softener] 200 mg PO HS 10/19/17 [History] Donepezil HCl [Aricept] 10 mg PO HS 10/19/17 [History] Gluc Simpson Dipo Ch/Markus Simpson/C/Aleks [Glucosamine-Chondroitin Capsul] 1 cap PO BID [History] Hydrocortisone Rectal CRM [Proctosol-Hc] 1 appl RC DAILY PRN 10/19/17 [History] Menthol [Biofreeze] 1 appl TP Q8H PRN 10/19/17 [History] Polyvinyl Alcohol [Artificial Tears] 1 drop OP TID 10/19/17 [History] Enoxaparin [Lovenox] 30 mg SQ DAILY #7 syr 10/21/17 [Rx] Gabapentin [Neurontin] 200 mg PO QPM #20 capsule 10/21/17 [Rx] OxyCODONE Immed Rel [Roxicodone 5 MG] 5 mg PO Q6HR PRN 5 Days #14 tablet [Rx] Tramadol HCl [Ultram] 50 mg PO QID PRN 5 Days #14 tab 10/21/17 [Rx] clonazePAM [Clonazepam] 0.5 mg PO BID 5 Days #10 tab.rapdis 10/21/17 [Rx] Allergies/Adverse Reactions: 3 Allergy/AdvReac Type Severity Reaction Status Date / Time Penicillins Allergy Anaphylaxis Verified 06/06/16 11:27 - Respiratory Orders Oxygen / L per min (keep sats >88%) Smoking Cessation: Smoking cessation has been advised. For more information, call the [place] Tobacco Quit Line at 7-834-BXBV-NOW. - Ancillary Orders May consult with Dentist, Inventory Representative, Skills Instructor PRN - Advance Directives Code Status: DNR-Comfort Care - Mobility Orders Other (per P) - Rehabiliation Orders Rehab Potential: Fair Rehab Orders: Evaluation for Physical Therapy, Evaluation for Occupational Therapy - Diet Orders Cardiac CERTIFICATION: I certify that the transfer of the above named patient to an Extended Care Facility is necessary for the continuing treatment of the diagnosis listed. The above information is true and accurate reflection of patient's current condition. Confidential - Redisclosure prohibited without a patient's written consent.
[2017-10-21 16:37] VITALS: BP 134/82
== END 2017-10-21 17:22 | DRG 956 ==
LOC: EMEROO 21:30 → 3NENU 21:45 → SUATTDRO 23:17 → INTOOBSV 23:17
PROVIDERS: ADMIT Pediatrics; ATTEND Internal Medicine